=== PATIENT | male | born 1980 | race Caucasian/White ===

== ENCOUNTER 2018-07-29 08:21 | Emergency (ER) | payer MEDICAID, SELFPAY ==
[~2018-07-29] VITALS: Ht 180.3 cm; Wt 90.0 kg
[2018-07-29 08:41] VITALS: BP 132/92
== END 2018-07-29 08:59 | disposition home or self-care (01) ==
LOC: ED 08:53
DX: M79.622 Pain in left upper arm (principal); I10 Essential (primary) hypertension; F15.10 Other stimulant abuse, uncomplicated
CPT/HCPCS: 93005; 99283

== ENCOUNTER 2019-08-08 02:49 | Emergency (ER) | payer SELFPAY ==
[~2019-08-08] VITALS: Ht 177.8 cm; Wt 95.0 kg
[2019-08-08] MEDS ORDERED: ZIPRASIDONE 20 MG INJ IM ONE ×2 (03:19→03:30)
--- NOTE | 2019-08-08 03:38 | NUR ---
PT ASKED RN "TO CALL HIS MOTHER MCKAYLA AT [phone] AND TELL HER WHERE HE IS AT AND WHAT IS HAPPENING AND FOR HER TO COME TO ER AND GET HIS BELONGINGS".
[2019-08-08 04:26] LABS: BASOPHILS # (AUTO) 0.02 x10^3/uL (0-0.1); BASOPHILS % (AUTO) 0 % (0-1); EOSINOPHILS # (AUTO) 0.08 x10^3/uL (0-0.4); EOSINOPHILS % (AUTO) 1 % (1-7); LYMPHOCYTES # (AUTO) 3.14 x10^3/uL (1-3.4); LYMPHOCYTES % (AUTO) 32 % (22-44); MD NO; MEAN CORPUSCULAR HEMOGLOBIN 31.2 pg (27.5-34.5); MEAN CORPUSCULAR HGB CONC 33.6 g/dL (33.2-36.2); MEAN CORPUSCULAR VOLUME 92.8 fL (81-97); MEAN PLATELET VOLUME 7.9 fL (7.4-10.4); MONOCYTES # (AUTO) 0.74 x10^3/uL (0.2-0.8); MONOCYTES % (AUTO) 8 % (2-9); NEUTROPHILS # (AUTO) 5.75 x10^3/uL (1.8-6.8); NEUTROPHILS % (AUTO) 59 % (42-75); PLATELET COUNT 258 x10^3/uL (130-400); RED BLOOD COUNT 4.97 x10^6/uL (4.38-5.82); RED CELL DISTRIBUTION WIDTH 13.3 % (9.4-14.8)
[2019-08-08 04:38] LABS: ALANINE AMINOTRANSFERASE 32 U/L (12-78); ALBUMIN 4.2 g/dL (3.4-5.0); ANION GAP 7 mmol/L (5-15); CALCIUM 8.8 mg/dL (8.5-10.1); CHLORIDE 105 mmol/L (98-107); SALICYLATE LEVEL 1.9 mg/dL (2.8-20.0)
[2019-08-08 04:49] LABS: ALKALINE PHOSPHATASE 86 U/L (45-117); BILIRUBIN,TOTAL 0.5 mg/dL (0.2-1.0); CREATININE 0.75 mg/dL (0.7-1.3); TOTAL PROTEIN 7.6 g/dL (6.4-8.2)
[2019-08-08] MEDS ORDERED: POTASSIUM CHLORIDE 20 MEQ TAB.ER.PRT PO ONE (05:00)
--- NOTE | 2019-08-08 06:24 | NUR ---
PT RESTING IN BED WITH SITTER AT DOOR, PT ROOM IS SI SECURED.
--- NOTE | 2019-08-08 06:26 | NUR ---
PT MOTHER MCKAYLA AND HER BOYFRIEND MATT ADAMS CAME TO HOSPITAL AND GOT PT'S COTHING BAG TO BRING BACK HOME AT PT'S REQUEST.
[2019-08-08] MEDS ORDERED: POTASSIUM CHLORIDE 20 MEQ TAB.ER.PRT ONE (06:28)
--- NOTE | 2019-08-08 06:32 | NUR ---
PT ASKED REPEDITLY FOR URINE, PT CONTINUES TO DENY THE URGE TO URINATE.
--- NOTE | 2019-08-08 06:42 | NUR ---
DR LUNA FROM [facility] CALLED AND RECOMENDED HOLDING PT UNTIL HE LESS ALTERED AND TELEPSYCH CAN REAVALUATE PT FOR ANY CHANGE IN THOUGHTS.
--- NOTE | 2019-08-08 07:00 | NUR ---
BEDSIDE REPORT FROM JASMYN RN, PT RESTING IN HOSPITAL BED WATCHING TV IN SECURED ROOM WITH SITTER AT DOORWAY. URINE SAMPLE NEEDED, PT AWARE.
--- NOTE | 2019-08-08 08:20 | NUR ---
PT RESTING IN BED, SITTER AT DOORWAY. PT GIVEN BREAKFAST TRAY
--- NOTE | 2019-08-08 09:18 | NUR ---
PT ASLEEP IN HOSPITAL BED WITH GF AT BEDSIDE. NO NEEDS AT THIS TIME. UDS WALKED TO LAB. SITTER AT DOORWAY
--- NOTE | 2019-08-08 10:08 | NUR ---
PT SLEEPING IN BED WITH SITTER AT DOORWAY, IN SECURED ROOM. NO NEEDS AT THIS TIME
--- NOTE | 2019-08-08 10:54 | NUR ---
Returned ER call rgarding this PT, spoke w/Elisha, advised that he was a self-pay, this RN will call supervisor coating and ask about self-pay, also advised Elisha that the Telepsych MD recommended that the pt be held longer and to allow more time so the pt is less altered for the telepsych reevaluation. We also would need a UDS.
--- NOTE | 2019-08-08 11:03 | NUR ---
PT SLEEPING IN HOSPITAL BED WITH SITTER AT DOORWAY, IN SECURED ROOM. NO NEEDS AT THIS TIME
--- NOTE | 2019-08-08 11:08 | NUR ---
PT SLEEPING IN BED IN SECURED ROOM WITH SITTER AT DOORWAY.
[2019-08-08 11:17] LABS: AMPHETAMINE SCREEN, URINE Positive (Negative); BARBITURATE SCREEN, URINE Negative (Negative); BENZODIAZEPINE SCREEN, URINE Negative (Negative); CANNABINOID SCREEN, URINE Negative (Negative); COCAINE SCREEN, URINE Negative (Negative); METHADONE SCREEN, URINE Negative (Negative); OPIATE SCREEN, URINE Negative (Negative)
--- NOTE | 2019-08-08 11:18 | NUR ---
U unable to admit due to being self-pay, per DON. Elihsa Warner was notified.
--- NOTE | 2019-08-08 11:34 | NUR ---
THROUGHPUT: PATIENT DENIED AT [facility] PER [employer], DUE TO INSURANCE. PACKET FAXED TO [facility], CONFIRMATION SHEET RECEIVED AND PLACED IN CHART.
--- NOTE | 2019-08-08 12:05 | NUR ---
PT GIVEN LUNCH TRAY, PT DECLINED, SLEEPING IN BED IN SECURED ROOM WITH SITTER AT DOORWAY.
--- NOTE | 2019-08-08 13:04 | NUR ---
PT SLEEPING IN BED IN SECURED ROOM WITH SITTER AT DOORWAY, EQUAL CHEST RISE AND FALL
--- NOTE | 2019-08-08 14:07 | NUR ---
PT SLEEPING IN BED IN SECURED ROOM WITH SITTER AT DOORWAY, EQUAL CHEST RISE AND FALL
--- NOTE | 2019-08-08 15:10 | NUR ---
PT SLEEPING IN BED IN SECURED ROOM WITH SITTER AT DOORWAY, EQUAL CHEST RISE AND FALL
--- NOTE | 2019-08-08 16:06 | NUR ---
PT SLEEPING IN BED IN SECURED ROOM WITH SITTER AT DOORWAY, EQUAL CHEST RISE AND FALL
--- NOTE | 2019-08-08 17:04 | NUR ---
PT RESTING IN HOSPITAL BED, EQUAL CHEST RISE AND FALL. SITTER AT DOORWAY OF SECURED ROOM
--- NOTE | 2019-08-08 17:52 | NUR ---
PT GIVEN DINNER TRAY. PT RESTING IN HOSPITAL BED, EQUAL CHEST RISE AND FALL. SITTER AT DOORWAY OF SECURED ROOM
[2019-08-08 21:42] VITALS: BP 136/88
--- NOTE | 2019-08-08 23:17 | NUR ---
PT REQUESTING RE-EVALUATION. HE STATES THAT HE IS FEELING MUCH BETTER AND WOULD LIKE TO CONTINUE TX OUT PT. MADE AWARE. NEW ORDERS TO RE-EVALUATE.
--- NOTE | 2019-08-08 23:19 | NUR ---
PT HAS GF AT BED SIDE. HE IS A&OX4, COOPERATIVE AND PLEASANT. PT STATES THAT HE IS CONCERNED ABOUT MISSING WORK AND COURT DATE AND WOULD LIKE TO HAVE MEDS AJUSTED. HE REPORTS HX OF BIPOLAR D/O.
--- NOTE | 2019-08-09 00:10 | NUR ---
DELIVERED SANDWITCH AND YOGART TO PT PER PT REQUEST.
--- NOTE | 2019-08-09 00:48 | NUR ---
TASK RN: REPORT TO SOC MD FOR REPEAT TELEPSYSCH CONSULT
--- NOTE | 2019-08-09 01:25 | NUR ---
TELEPSYCH COMPLETE. GF AT BEDSIDE. SITTER IN SIDDIQI
--- NOTE | 2019-08-09 01:40 | NUR ---
TP RN: PER SOC CONSULT, TO DECERTIFY HOLD. CONSULT FAXED, GIVEN TO ERP. PT TO BE DC'D.
--- NOTE | 2019-08-09 02:00 | NUR ---
TP RN: PT PROVIDED CLEANING CLOTHING, ALL PERSONAL BELONGINGS RETURNED TO PT BY AVIVA PLATA. DC EDUCATION PROVIDED, PT DEMONSTRATES UNDERSTANDING. PT AMBULATED STEADILY TO DC WITH AVIVA PLATA AND FRIEND
--- NOTE | 2019-08-09 02:10 | NUR ---
PT D/C TO HOME WITH GF. PT HAD NO CLOTHING/DONATION CLOTHING AND SHOES GIVEN. DISCHARGE INSTRUCTIONS REVIEWED. PT VERBALY DEMONSTRATES UNDERSTANDING. B/P= 139/91, P= 71, SPO2=97%, T=98.0. PT ESCOURTED TO DISCHARGED DESK.
== END 2019-08-09 02:11 | disposition home or self-care (01) ==
LOC: ED 05:11
DX: F15.10 Other stimulant abuse, uncomplicated (principal); F15.159 Other stimulant abuse with stimulant-induced psychotic disorder, unspecified; F32.1 Major depressive disorder, single episode, moderate
CPT/HCPCS: 36415; 80053; 80307; 84443; 85025; 96372; 99284; J3486

== ENCOUNTER 2020-05-05 11:17 | Emergency (ER) | payer SELFPAY ==
[~2020-05-05] VITALS: Ht 177.8 cm; Wt 98.3 kg
--- NOTE | 2020-05-05 11:35 | NUR ---
PATIENT COMES IN TODAY C/O TIGHTNESS IN HIS ABDOMEN X1 WEEK WITH DISTENTION. PATIENT WAS STILL PASSING SMALL BOWEL MOVEMENTS, HOWEVER DID NOT HAVE A BM FOR THE LAST 72 HOURS, PATIENT TOOK OF MILK OF MAGNESIA THIS MORNING AND WAS SITTING ON TOILET WHEN HE PUSHED ON HIS ABDOMEN AND FELT SOMETHING "POP," AFTER WHICH HE STOOD UP AND STARTED DRY HEAVING AND PASSED A LARGE WATERY YELLOW BOWEL MOVEMENT. PATIENT IS A&OX4, ACCOMPANIED BY SIGNIFICANT OTHER, NO C/O PAIN, JUST DISCOMFORT. Addendum: 05/05/20 at 1142 by [email or web address] PAIN THIS MORNING WAS IN LLQ OF ABDOMEN.
[2020-05-05] MEDS ORDERED: SODIUM CHLORIDE FLUSH 10ML SYR IVF ONE (12:00)
--- NOTE | 2020-05-05 12:21 | NUR ---
URINE SAMPLE COLLECTED, 20 GAUGE IV STARTED IN RIGHT HAND. PATIENT RESTING COMFORTABLY IN GURNEY, SO AT BEDSIDE. NO FURTHER NEEDS AT THIS TIME.
[2020-05-05 12:32] LABS: BASOPHILS # (AUTO) 0.04 x10^3/uL (0-0.1); BASOPHILS % (AUTO) 1 % (0-1); EOSINOPHILS # (AUTO) 0.12 x10^3/uL (0-0.4); EOSINOPHILS % (AUTO) 2 % (1-7); LYMPHOCYTES # (AUTO) 2.54 x10^3/uL (1-3.4); LYMPHOCYTES % (AUTO) 32 % (22-44); MD NO; MEAN CORPUSCULAR HGB CONC 33.9 g/dL (33.2-36.2); MEAN PLATELET VOLUME 7.9 fL (7.4-10.4); MONOCYTES % (AUTO) 14 % (2-9); NEUTROPHILS # (AUTO) 4.09 x10^3/uL (1.8-6.8); NEUTROPHILS % (AUTO) 52 % (42-75); PLATELET COUNT 215 x10^3/uL (130-400); RED BLOOD COUNT 4.81 x10^6/uL (4.38-5.82); RED CELL DISTRIBUTION WIDTH 12.8 % (9.4-14.8)
[2020-05-05 12:39] LABS: MICROSCOPIC INDICATED
[2020-05-05 12:44] LABS: ALANINE AMINOTRANSFERASE 29 U/L (12-78); ALBUMIN 3.3 g/dL (3.4-5.0); ANION GAP 5 mmol/L (5-15); CALCIUM 8.2 mg/dL (8.5-10.1); CHLORIDE 101 mmol/L (98-107); CREATININE 0.84 mg/dL (0.7-1.3)
[2020-05-05 12:46] LABS: ALKALINE PHOSPHATASE 115 U/L (45-117); BILIRUBIN,TOTAL 0.3 mg/dL (0.2-1.0); TOTAL PROTEIN 7.3 g/dL (6.4-8.2)
--- NOTE | 2020-05-05 12:51 | NUR ---
Patient c/o that IV is painful and asks that it be removed. IV removed and new 20 gauge IV started in right upper arm. No further needs at this time.
--- NOTE | 2020-05-05 13:20 | NUR ---
PATIENT WALKED TO BATHROOM, BACK IN ROOM, LAYING ON GURNEY, NO FURTHER NEEDS AT THIS TIME.
--- NOTE | 2020-05-05 13:28 | NUR ---
Patient requesting water, spoke with provider, patient is to be kept NPO until after CT scan. Patient notified.
[2020-05-05] MEDS ORDERED: OMNIPAQUE 350 MG/ML, 100ML BOTTLE ONE (13:53)
[2020-05-05 14:10] VITALS: BP 146/98
--- NOTE | 2020-05-05 14:15 | NUR ---
BRITNI NEWSOME AT BEDSIDE TO DISCUSS POC/DISCHARGE INSTRUCTIONS REVIEWED.
--- NOTE | 2020-05-05 14:38 | NUR ---
Patient and Significant other given discharge instructions and they have confirmed that they understand the instructions. Patient ambulatory with steady gait, accompanied by significant other to discharge desk.
== END 2020-05-05 14:38 | disposition home or self-care (01) ==
LOC: ED 12:58
DX: R10.84 Generalized abdominal pain (principal); R30.0 Dysuria; R10.9 Unspecified abdominal pain; R19.7 Diarrhea, unspecified; J45.909 Unspecified asthma, uncomplicated; I10 Essential (primary) hypertension
CPT/HCPCS: 36415; 74177; 80053; 81001; 85025; 99285; Q9967

== ENCOUNTER 2020-05-20 21:15 | Emergency (ER) | payer SELFPAY ==
[~2020-05-20] VITALS: Ht 177.8 cm; Wt 94.9 kg
[2020-05-20] MEDS ORDERED: DEXAMETHASONE 4 MG/ML, 1ML ONE (21:53)
[2020-05-20] MEDS ORDERED: CEFTRIAXONE PMX 2GM/50ML 50 ML ONE (21:53)
[2020-05-20] MEDS ORDERED: SODIUM CHLORIDE FLUSH 10ML SYR IVF ONE (22:00)
[2020-05-20] MEDS ORDERED: CEFTRIAXONE PMX 2GM/50ML 50 ML IV ONE (22:00)
[2020-05-20] MEDS ORDERED: DEXAMETHASONE 4 MG/ML, 1ML IVPush ONE (22:00)
[2020-05-20] MEDS ORDERED: SODIUM CHLORIDE 0.9% 1,000ML IVBOLUS ONE (22:00)
[2020-05-20] MEDS ORDERED: ONDANSETRON 2MG/ML, 2ML ONE (22:13)
[2020-05-20] MEDS ORDERED: ONDANSETRON 2MG/ML, 2ML IVPush ONE (22:30)
[2020-05-20 23:20] VITALS: BP 149/98
== END 2020-05-20 23:30 | disposition home or self-care (01) ==
LOC: ED 21:45
DX: J02.9 Acute pharyngitis, unspecified (principal); R09.81 Nasal congestion; I10 Essential (primary) hypertension; J45.909 Unspecified asthma, uncomplicated; F17.200 Nicotine dependence, unspecified, uncomplicated
CPT/HCPCS: 96365; 96375; 99284; J0696; J1100; J2405; J7030; 96361